=== PATIENT | female | born 1970 | race Caucasian/White ===

== ENCOUNTER 2022-01-28 22:40 | Emergency (ER) | payer OTHER, SELFPAY ==
[2022-01-28 22:46] VITALS: BP 182/74; PULSE 70; RESP 18; TEMP 36.8; O2SAT 96; BMI 29.2
--- NOTE | 2022-01-28 22:50 | ED.PSYCH ---
HPI - Psych General Chief Complaint: Psychiatric Symptoms Stated Complaint: SI Time Seen by Provider: 01/28/22 22:48 Source: patient Mode of arrival: EMS Limitations: no limitations History of Present Illness MD complaint: suicidal ideation and feels depressed Onset (ago): week(s) (intermittent) Duration: constant History of same: Yes Relieving factors: none Exacerbating factors: other Context: significant life stressor Associated psychiatric symptoms: depression and suicidal ideation Associated symptoms: denies other symptoms Treatments prior to arrival: none If self harm: admits thoughts of self harm Related Data Home Medications Medication Instructions Recorded Confirmed atorvastatin 40 mg tablet 1 tab PO BEDTIME 01/28/22 01/28/22 chlorthalidone 50 mg tablet 1 tab PO DAILY 01/28/22 01/28/22 diltiazem HCl 300 mg 1 cap PO QAM 01/28/22 01/28/22 capsule,extended release 24 hr lamotrigine 25 mg tablet 3 tab PO DAILY 01/28/22 01/28/22 nebivolol 20 mg tablet 1 tab PO DAILY 01/28/22 01/28/22 pantoprazole 40 mg tablet,delayed 1 tab PO DAILY 01/28/22 01/28/22 release Allergies Allergy/AdvReac Type Severity Reaction Status Date / Time morphine Allergy Intermediate Hives Verified 01/28/22 22:51 sertraline [From Zoloft] Allergy Intermediate Anxiety Verified 01/28/22 22:52 Review of Systems Review of Systems: Constitutional : No Fever, No Chills ENT/Mouth : No Ear Pain, No Nasal Congestion, No sore throat Eyes: No Eye Pain, No Swelling, No Redness Cardiovascular : No Chest Pain, No SOB Respiratory : No Cough, No Sputum, No Dyspnea Gastrointestinal : No Nausea, No Vomiting, No Diarrhea, No Hematochezia, No Melena Genitourinary : No Dysuria, No Urinary Frequency, No Hematuria Musculoskeletal : No Myalgias Skin : No Skin Lesions, No rash Neuro : No Weakness, No Numbness, No Paresthesias, No Dizziness, No Headache Psych : positive Anxiety, positive Depression, positive SI no HI Heme/Lymph: No Lymphadenopathy Endocrine : No Polyuria, No Polydipsia All other systems reviewed and are negative [facility] Past Medical History Attestation statement: The following information was validated with the patient. Medical History Depression Social History Social History (Updated 01/28/22 @ 23:17 by Cindy Valderrama DO) Alcohol intake: current Patient Tobacco Use Status: Current everyday Tobacco user Physical Exam Vital Signs: Vital Signs: Last Vital Signs Temp 98.2 F 01/28/22 22:46 Pulse 70 01/28/22 22:46 Resp 18 01/28/22 22:46 BP 182/74 H 01/28/22 22:46 Pulse Ox 96 01/28/22 22:46 O2 Del Method 01/28/22 22:46 BMI result Body Mass Index 29.2 Appearance: Alert. Oriented X3. No acute distress. Eyes: Pupils equal, round and reactive to light. ENT: Pharynx normal. Neck: Normal inspection. Neck supple. CVS: Normal heart rate and rhythm. Pulses normal. Respiratory: No respiratory distress. Breath sounds normal. Abdomen: Soft and nontender. Skin: Skin warm and dry. Normal skin color. Normal skin turgor. Extremities: No lower extremity edema. No calf ttp Neuro: Oriented X 3. No motor deficit. No sensory deficit. CN2-12 intact Course Course Course Narrative: Physician observation started at 1118pm. Patient placed in physician observation because the patient needed more time for CARE team to assess the need for psych admission. At the time observation was started the patient's vitals were stable, patient is alert and oriented but slightly anxious, Neuro: nonfocal, CV RRR, Lungs clear MDM - Psych MDM Narrative Medical decision making narrative: 51 yo female with PMH of depression here with c/o depression and SI statements to friend at this time will obtain basic labs and refer to CARE team for statements. Discharge Plan Discharge Clinical Impression: Depression with suicidal ideation Patient Disposition: Still a Patient Prescriptions: No Action atorvastatin 40 mg tablet 1 tab PO BEDTIME chlorthalidone 50 mg tablet 1 tab PO DAILY lamotrigine 25 mg tablet 3 tab PO DAILY diltiazem HCl 300 mg capsule,extended release 24hr 1 cap PO QAM pantoprazole 40 mg tablet,delayed release (DR/EC) 1 tab PO DAILY nebivolol 20 mg tablet 1 tab PO DAILY
[2022-01-28 23:09] LABS: Appearance Urine CLEAR; Color Urine YELLOW; Glucose Urine UA NEG (NEG); Leukocyte Esterase Urine NEG (NEG); Nitrite Urine NEG (NEG); PH 5.5 (5.0-8.0); Urine Blood 2+ (NEG); Urine Ketones NEG (NEG); Urine Protein NEG (NEG-TRACE)
[2022-01-28 23:18] LABS: COVID-19 Test Negative (Negative)
[2022-01-28 23:23] LABS: Amphetamine Screen Urine Not Detected (Not Detect); Barbiturates, Urine Not Detected (Not Detect); Benzodiazepines Screen Urine Not Detected (Not Detect); Cannabinoid Screen Urine POSITIVE (Not Detect); Cocaine Screen Urine Not Detected (Not Detect); Fentanyl, urine Not Detected (Not Detect); Opiate Screen Urine Not Detected (Not Detect); Phencyclidine Screen Urine Not Detected (Not Detect)
[2022-01-28 23:29] LABS: Calcium Phosphate Crystals Ur TRACE /LPF; RBC Urine 0-2 /HPF (0); Squamous Epithelial Cell Urine TRACE /LPF; WBC Urine 0-2 /HPF (0-4)
[2022-01-28 23:34] LABS: Basophils Percent Auto 0.6 % (0-2); Eosinophils Absolute Auto 0.1 X10*3/uL (0.0-0.4); Eosinophils Percent Auto 1.5 % (0-4); Hematocrit 41.8 % (37.0-47.0); Hemoglobin 14.8 g/dl (12.0-16.0); Imm Gran Abs Auto 0.02 X10*3/uL (0.00-0.03); Imm Gran Pct Auto 0.3 % (0.0-0.4); Lymphocytes Percent Auto 44.3 % (20-40); MANUAL DIFF FLAG NO; Mean Corpuscular HGB Conc 35.4 g/dl (31.0-35.0); Mean Corpuscular Hemoglobin 29.9 pg (27.0-33.0); Mean Corpuscular Volume 84.4 fL (80.0-98.0); Mean Platelet Volume 9.8 fL (9.4-12.3); Monocytes Absolute Auto 0.6 X10*3/uL (0.1-1.2); Monocytes Percent Auto 9.4 % (2-11); Neutrophils Percent Auto 43.9 % (45-73); Platelet Count 301 X10*3/uL (160-400); Red Blood Count 4.95 X10*6/uL (4.20-5.50); Red Cell Distribution Width 12.5 % (11.0-16.0); White Blood Count 6.8 X10*3/uL (4.8-10.8)
[2022-01-28 23:54] LABS: Alanine Aminotransferase 38 U/L (0-31); Albumin Level 4.3 g/dL (3.5-5.0); Alkaline Phosphatase 58 U/L (39-117); Anion Gap 17 (12-20); Aspartate Amino Transferase 28 U/L (5-31); Bilirubin Direct 0.2 mg/dL (0.0-0.5); Bilirubin Total 0.6 mg/dL (0.0-1.0); Blood Urea Nitrogen 11 mg/dL (9-16); Calcium 9.3 mg/dL (8.4-10.2); Carbon Dioxide 28 mmol/L (22-29); Chloride 100 mmol/L (96-108); Creatinine Clr Calc Pharmacy 82.5; Estimated Glomerular Filt Rate > 60; Ethanol 103 mg/dL; Glucose Random 141 mg/dL (60-115); Potassium 3.1 mmol/L (3.3-5.1); Sodium 142 mmol/L (135-145); Total Protein 7.3 g/dL (6.5-8.0)
[2022-01-29] MEDS: Potassium Chloride ER 20 MEQ TAB.ER.PRT 40 MEQ PO (00:43)
--- NOTE | 2022-01-29 01:05 | PC.NURSE ---
Administered Klor-con 40 mEq /patient compliant, patient well engaged with care team clinician, disposition pending/OPAL follow up by care team in the morning, will continue to monitor.
[2022-01-29] MEDS: LORazepam 1 MG TABLET 2 MG PO (01:14)
--- NOTE | 2022-01-29 01:16 | MHC.CARE ---
CARE team met with pt for evaluation. Plan is for follow up in the morning to determine plan of care.
--- NOTE | 2022-01-29 06:30 | PC.NURSE ---
Patient slept through the night, no distress observed/reported, medication compliant, med rec completed/MAR updated, patient was assessed by care team, disposition pending, OPAL follow up in the morning by care team, behavior non concerning, BP 143/60 at 0633, will continue to monitor
[2022-01-29 06:33] VITALS: BP 143/60; PULSE 61; RESP 17; TEMP 36.4; O2SAT 98
--- NOTE | 2022-01-29 07:23 | PC.NURSE ---
patient appears to remain asleep at present respirations are even and unlabored patient appears in no distress
[2022-01-29] MEDS: hydroCHLOROthiazide 50 MG TABLET PO (08:23)
[2022-01-29] MEDS: lamoTRIgine 25 MG TABLET 75 MG PO (08:24)
[2022-01-29] MEDS: dilTIAZem HCL CD 120 MG CAP.ER.DEG PO (08:24)
[2022-01-29] MEDS: Omeprazole 20 MG CAPSULE.DR PO (08:24)
[2022-01-29] MEDS: dilTIAZem HCL CD 180 MG CAP.ER.24H PO (08:24)
[2022-01-29 08:51] VITALS: BP 136/58; PULSE 64; RESP 13; TEMP 36.5; O2SAT 99
--- NOTE | 2022-01-29 13:13 | PM.PSYCN ---
History of Present Illness Chief Complaint: [facility] Medical History Depression Diagnostics Vital Signs (24Hr): Vital Signs - 24 hr 01/28/22 22:46 01/29/22 06:33 01/29/22 08:51 Temperature 98.2 F 97.5 F 97.7 F Pulse Rate 70 61 64 Respiratory Rate 18 17 13 Blood Pressure 182/74 H 143/60 H 136/58 L Pulse Oximetry 96 98 99 Oxygen Delivery Method Room Air Room Air Room Air BMI result Body Mass Index 29.2 Labs Results: 01/28/22 23:29 01/28/22 23:29 Labs: Laboratory Results - last 48 hr 01/28/22 01/28/22 01/28/22 22:57 22:57 22:58 WBC RBC Hgb Hct MCV MCH MCHC RDW Plt Count MPV Immature Gran % (Auto) Neut % (Auto) Lymph % (Auto) [place] % (Auto) Eos % (Auto) Baso % (Auto) Lymph # (Auto) [place] # (Auto) Eos # (Auto) Baso # (Auto) Abs Immat Gran (auto) Absolute Neuts (auto) Absolute Nucleated RBC Nucleated RBC % (auto) Sodium Potassium Chloride Carbon Dioxide Anion Gap BUN Creatinine Estim Creat Clear Calc Estimated GFR Random Glucose Calcium Total Bilirubin Direct Bilirubin AST ALT Alkaline Phosphatase Total Protein Albumin Urine Color YELLOW Urine Appearance CLEAR Urine pH 5.5 Ur Specific Dolph 1.010 Urine Protein NEG Urine Glucose (UA) NEG Urine Ketones NEG Urine Blood 2+ H Urine Nitrite NEG Ur Leukocyte Esterase NEG Urine RBC 0-2 Urine WBC 0-2 Ur Squamous Epith Cells TRACE Calcium Phosphate Cryst TRACE Urine Bacteria NONE Urine Opiates Screen Not Detected Urine Fentanyl Screen Not Detected Ur Barbiturates Screen Not Detected Ur Phencyclidine Scrn Not Detected Ur Amphetamines Screen Not Detected U Benzodiazepines Scrn Not Detected Urine Cocaine Screen Not Detected U Marijuana (THC) Screen POSITIVE H Ethyl Alcohol COVID-19 ([facility]) Negative COVID-19 Clin Com See Note 01/28/22 01/28/22 23:29 23:29 WBC 6.8 RBC 4.95 Hgb 14.8 Hct 41.8 MCV 84.4 MCH 29.9 MCHC 35.4 H RDW 12.5 Plt Count 301 MPV 9.8 Immature Gran % (Auto) 0.3 Neut % (Auto) 43.9 L Lymph % (Auto) 44.3 H [place] % (Auto) 9.4 Eos % (Auto) 1.5 Baso % (Auto) 0.6 Lymph # (Auto) 3.0 [place] # (Auto) 0.6 Eos # (Auto) 0.1 Baso # (Auto) 0.0 Abs Immat Gran (auto) 0.02 Absolute Neuts (auto) 3.0 Absolute Nucleated RBC 0.000 Nucleated RBC % (auto) 0.0 Sodium 142 Potassium 3.1 L Chloride 100 Carbon Dioxide 28 Anion Gap 17 BUN 11 Creatinine 0.79 Estim Creat Clear Calc 82.5 Estimated GFR > 60 Random Glucose 141 H Calcium 9.3 Total Bilirubin 0.6 Direct Bilirubin 0.2 AST 28 ALT 38 H Alkaline Phosphatase 58 Total Protein 7.3 Albumin 4.3 Urine Color Urine Appearance Urine pH Ur Specific Dolph Urine Protein Urine Glucose (UA) Urine Ketones Urine Blood Urine Nitrite Ur Leukocyte Esterase Urine RBC Urine WBC Ur Squamous Epith Cells Calcium Phosphate Cryst Urine Bacteria Urine Opiates Screen Urine Fentanyl Screen Ur Barbiturates Screen Ur Phencyclidine Scrn Ur Amphetamines Screen U Benzodiazepines Scrn Urine Cocaine Screen U Marijuana (THC) Screen Ethyl Alcohol 103 COVID-19 ([facility]) COVID-19 Clin Com Medications Medications Current Medications Atorvastatin Calcium (Atorvastatin Calcium 40 Mg Tablet) 40 mg PO BEDTIME REPLACED BY [facility] Diltiazem HCl (Diltiazem Hcl Cd 300 Mg Cap.Er.24h) 300 mg PO DAILY REPLACED BY [facility]; Protocol Hydrochlorothiazide (Hydrochlorothiazide 50 Mg Tablet) 50 mg PO DAILY REPLACED BY [facility] Last Admin: 01/29/22 08:23 Dose: 50 mg Lamotrigine (Lamotrigine 25 Mg Tablet) 75 mg PO DAILY REPLACED BY [facility] Last Admin: 01/29/22 08:24 Dose: 75 mg Non-Formulary Medication (Nebivolol) 1 tab PO DAILY REPLACED BY [facility] Omeprazole (Omeprazole 20 Mg Capsule.Dr) 20 mg PO BID REPLACED BY [facility] Last Admin: 01/29/22 08:24 Dose: 20 mg Allergies Allergies Allergy/AdvReac Type Severity Reaction Status Date / Time morphine Allergy Intermediate Hives Verified 01/28/22 22:51 sertraline [From Zoloft] Allergy Intermediate Anxiety Verified 01/28/22 22:52 Assessment & Plan I spent minutes with the patient and/or on the patient floor today, greater than?50% of which was spent counseling/coordinating care.
--- NOTE | 2022-01-30 18:37 | MHC.CARE ---
CARE Team reaches out to pt by phone to follow up. Pt states that she has returned to work, but continues to feel depressed. She identifies that she will soon be following up with her therpist and is looking for an outpatient psychiatric provider. Contact information for [facility] is provided and pt also identgifies that she can reach out through her EAP. Pt is encouraged to pursue PHP if her depression worsens prior to her being able to engage with additional outpatient supports. Pt has a plan to travel to [facility] if she feels she needs a hospitalization because of the work she is currently doing in this area. Pt identifies that she does have some natural support that she is using, and agrees to reach back out to the CARE Team if she needs any further supports or referrals.
== END 2022-01-29 15:58 | disposition home or self-care (01) ==
PROVIDERS: Emergency Provider Emergency Medicine; PCP Family Medicine
DX: F32.A Depression, unspecified (principal); R45.851 Suicidal ideations; F41.9 Anxiety disorder, unspecified; Z20.822 Contact with and (suspected) exposure to COVID-19; F17.200 Nicotine dependence, unspecified, uncomplicated; F12.90 Cannabis use, unspecified, uncomplicated; Z79.02 Long term (current) use of antithrombotics/antiplatelets; Z79.899 Other long term (current) drug therapy
CPT/HCPCS: 36415; 80048; 80076; 80307; 81001; 82077; 85025; 87635; 99284